=== PATIENT | male | born 1945 ===

== ENCOUNTER 2023-12-16 12:00 | Inpatient (IN) | payer OTHER ==
[~2023-12-16] VITALS: Ht 177.8 cm; Wt 703.1 kg
[2023-12-16 13:18] VITALS: BP 125/68
[2023-12-20] MEDS ORDERED: CEFTRIAXONE SODIUM 2,000 MG VIAL ONE (11:33)
[2023-12-20] MEDS ORDERED: METRONIDAZOLE/SODIUM CHLORIDE 500 MG/100 ML PIGGYBACK IV ONE ×2 (11:34→16:58)
[2023-12-20] MEDS ORDERED: BUPIVACAINE HCL/MPF 0.5% 30ML VIAL ONE (14:48)
[2023-12-20] MEDS ORDERED: SUGAMMADEX SODIUM 200 MG/2 ML VIAL IV ONE (16:03)
[2023-12-20] MEDS ORDERED: DEXTROSE 50 % IN WATER 0.5 G/ML DISP.SYRIN IV PRN (16:15)
[2023-12-20] MEDS ORDERED: RINGERS SOLUTION,LACTATED 1,000 ML IV SCH (16:15)
[2023-12-20] MEDS ORDERED: MORPHINE SULFATE 4 MG/ML CARTRIDGE IV PRN (16:15)
[2023-12-20] MEDS ORDERED: ONDANSETRON HCL 2 MG/ML VIAL IV PRN (16:15)
[2023-12-20] MEDS ORDERED: OxyCODONE HCL 5 MG TABLET (ROXICODONE) PO PRN (16:15)
[2023-12-20] MEDS ORDERED: GABAPENTIN300 M2 (16:18)
[2023-12-20] MEDS ORDERED: FAMOTIDINE20 MG (16:18)
[2023-12-20] MEDS ORDERED: METRONIDAZOLE/SODIUM CHLORIDE 500 MG/100 ML PIGGYBACK IV SCH (17:00)
[2023-12-20] MEDS ORDERED: GABAPENTIN 300 MG CAPSULE PO SCH (17:00)
[2023-12-20] MEDS ORDERED: HYOSCYAMINE SULFATE 0.125 MG TAB.SUBL SL SCH (17:00)
[2023-12-20] MEDS ORDERED: POLYETHYLENE GLYCOL 3350 17 GM BLIST.PACK PO SCH (17:00)
[2023-12-20 17:43] LABS: HEMATOCRIT 32.3 % (39.0-48.0); HEMOGLOBIN 10.6 g/dL (13-16.00); MEAN CELL VOLUME 85.8 fL (80.0-100.00); MEAN CORPUSCULAR HEMOGLOBIN 28.1 pg (27.00-32.0); MEAN CORPUSCULAR HGB CONC 32.8 g/dl (32.0-36.0); PLATELET COUNT 403 K/uL (150-450); RED BLOOD COUNT 3.77 M/uL (4.00-6.00); RED CELL DISTRIBUTION WIDTH 18.2 % (11.5-14.5)
[2023-12-20 18:01] VITALS: BP 125/68; O2SAT 98
[2023-12-20 18:17] LABS: ALBUMIN 2.5 gm/dL (3.4-5.0); CALCIUM 8.7 mg/dL (8.5-10.1); CREATININE SERUM 0.96 mg/dL (0.70-1.30); GFR 75.75; MAGNESIUM 2.2 mg/dL (1.8-2.4); PHOSPHOROUS 4.1 mg/dL (2.5-4.9); POTASSIUM 4.58 mEq/L (3.5-5.1)
[2023-12-20] MEDS ORDERED: ACETAMINOPHEN 500 MG GEL..CAP PO SCH (20:00)
[2023-12-20] MEDS ORDERED: FAMOTIDINE/PF 20 MG/2 ML VIAL IV PUSH SCH (21:00)
[2023-12-20] MEDS ORDERED: CELECOXIB 200 MG CAPSULE PO SCH (21:00)
[2023-12-20] MEDS ORDERED: CIPROFLOXACIN IN 5 % DEXTROSE 400 MG/200 ML PIGGYBAG IV SCH (21:00)
[2023-12-21] VITALS: BP 138/63; O2SAT 98
[2023-12-21 07:52] LABS: HEMATOCRIT 29.1 % (39.0-48.0); HEMOGLOBIN 9.8 g/dL (13-16.00); MEAN CELL VOLUME 84.2 fL (80.0-100.00); MEAN CORPUSCULAR HEMOGLOBIN 28.5 pg (27.00-32.0); MEAN CORPUSCULAR HGB CONC 33.8 g/dl (32.0-36.0); PLATELET COUNT 360 K/uL (150-450); RED BLOOD COUNT 3.45 M/uL (4.00-6.00); RED CELL DISTRIBUTION WIDTH 18.5 % (11.5-14.5)
[2023-12-21] MEDS ORDERED: LACTULOSE 20 G/30 ML BLIST.PACK PO SCH (09:00)
[2023-12-21] MEDS ORDERED: LACTOBACILLUS ACIDOPHILUS 1 CAP CAP PO SCH (09:00)
[2023-12-21 09:03] LABS: ALBUMIN 2.1 gm/dL (3.4-5.0); CALCIUM 8.3 mg/dL (8.5-10.1); CREATININE SERUM 0.78 mg/dL (0.70-1.30); GFR 96.26; PHOSPHOROUS 2.7 mg/dL (2.5-4.9); POTASSIUM 4.86 mEq/L (3.5-5.1)
[2023-12-21 09:35] VITALS: BP 120/57; O2SAT 99
[2023-12-21] MEDS ORDERED: SOD FERRIC GLUC COMPLX/SUCROSE 62.5 MG in 0.9 % SODIUM CHLORIDE 50 ML IV SCH (12:00)
[2023-12-21] MEDS ORDERED: Cyanocobalamin/Mecobalamin 1 TAB.SL SL SCH (12:00)
[2023-12-21] MEDS ORDERED: ENOXAPARIN SODIUM 40 MG/0.4 ML SYRINGE SUBCUTANEO SCH (17:00)
[2023-12-21 17:07] VITALS: BP 150/76; O2SAT 99
[2023-12-22 00:53] VITALS: BP 160/76; O2SAT 97
[2023-12-22 07:20] LABS: CALCIUM 8.3 mg/dL (8.5-10.1); CREATININE SERUM 0.81 mg/dL (0.70-1.30); GFR 92.16; PHOSPHOROUS 2.7 mg/dL (2.5-4.9); POTASSIUM 4.72 mEq/L (3.5-5.1)
[2023-12-22 07:50] LABS: HEMATOCRIT 29.3 % (39.0-48.0); HEMOGLOBIN 9.9 g/dL (13-16.00); MEAN CELL VOLUME 85.7 fL (80.0-100.00); MEAN CORPUSCULAR HGB CONC 33.8 g/dl (32.0-36.0); PLATELET COUNT 352 K/uL (150-450); RED BLOOD COUNT 3.41 M/uL (4.00-6.00); RED CELL DISTRIBUTION WIDTH 18.3 % (11.5-14.5)
[2023-12-22 08:00] VITALS: BP 131/69; O2SAT 97
[2023-12-22] MEDS ORDERED: ENOXAPARIN SODIUM 40 MG/0.4 ML SYRINGE SUBCUTANEO SCH (09:00)
[2023-12-22 16:04] VITALS: BP 149/62; O2SAT 96
[2023-12-23] VITALS: BP 141/61; O2SAT 97
[2023-12-23 07:48] VITALS: BP 134/66; O2SAT 98
[2023-12-23 16:22] VITALS: BP 134/73; O2SAT 99
[2023-12-24 00:25] VITALS: BP 146/67; O2SAT 96
[2023-12-24] MEDS ORDERED: NEURONTIN300 MG PO (09:46)
[2023-12-24 10:19] VITALS: BP 145/71; O2SAT 98
== END 2023-12-24 13:15 | disposition home or self-care (01) | DRG 330 ==
LOC: SURH 12-20 07:00 → O/R 12-20 09:50 → SURH 12-20 12:00
PROVIDERS: Internal Medicine Geriatric Medicine; ADMIT Surgery; ATTEND Surgery
PROC: 0D1N4Z4 Bypass Sigmoid Colon to Cutaneous, Percutaneous Endoscopic Approach (ICD-10-PCS; principal; 2023-12-20 07:00)
DX: C20 Malignant neoplasm of rectum (principal); C78.7 Secondary malignant neoplasm of liver and intrahepatic bile duct; K62.5 Hemorrhage of anus and rectum; R59.0 Localized enlarged lymph nodes; K59.09 Other constipation; K40.90 Unilateral inguinal hernia, without obstruction or gangrene, not specified as recurrent; D64.89 Other specified anemias; Z43.3 Encounter for attention to colostomy
CPT/HCPCS: 240

== ENCOUNTER → 2024-03-30 | Emergency (ER) | payer OTHER ==
[~2024-03-30] VITALS: Ht 175.3 cm; Wt 72.6 kg
[~2024-03-30] MED LIST: ATROPINE SULFATE 0.4 MG/ML VIAL ONE; DOPamine 800 MG/250 ML D5W PB IV ONE; FAMOTIDINE20 MG; GABAPENTIN300 M2; NEURONTIN300 MG PO
[2024-03-30 01:29] LABS: HEMATOCRIT 25.4 % (39.0-48.0); MEAN CELL VOLUME 94.4 fL (80.0-100.00); RED BLOOD COUNT 2.69 M/uL (4.00-6.00); RED CELL DISTRIBUTION WIDTH 20.9 % (11.5-14.5)
[2024-03-30 01:59] LABS: MEAN CORPUSCULAR HEMOGLOBIN 30.1 pg (27.00-32.0)
[2024-03-30 02:00] LABS: PLATELET COUNT 237 K/uL (150-450)
[2024-03-30 02:02] LABS: HEMOGLOBIN 8.1 g/dL (13-16.00)
[2024-03-30 02:10] LABS: CALCIUM 7.6 mg/dL (8.5-10.1); CHLORIDE 108 mmol/L (98-107); GLUCOSE FASTING 86 mg/dL (65-100); SODIUM 139 mmol/L (136-145)
[2024-03-30 02:11] LABS: ANION GAP 29 (10.0-20.0); BUN CREA RATIO 20 (7.0-25.0); OSMOLALITY SERUM 306 MOSM/KG (275-295)
[2024-03-30 02:13] LABS: CARBON DIOXIDE 8 mEq/L (21-32); CREATININE SERUM 4.73 mg/dL (0.70-1.30); POTASSIUM 6.31 mEq/L (3.5-5.1)
[2024-03-30 02:14] LABS: BILIRUBIN TOTAL 23.06 mg/dL (0.3-1.2)
[2024-03-30 02:15] LABS: BLOOD UREA NITROGEN 95 mg/dL (7-18); GFR 12.03
[2024-03-30 02:33] LABS: PH,URINE 7.5 (5.0-8.0); URINE APPEARANCE Turbid; URINE BILIRRUBIN Large (NEGATIVE); URINE COLOR Dark Yellow; URINE GLUCOSE Negative (NEGATIVE); URINE KETONE Negative (NEGATIVE); URINE LEUKOCYTE Large; URINE NITRATE Negative
[2024-03-30 02:36] LABS: URINE CAST 12.22 uL (0.0-1.40); URINE EPITHELIAL CELLS 8.2 uL (0.0-38.8); URINE RBC 88.6 uL (0.0-20.8); URINE WBC 663.5 uL (0.0-23.2)
[2024-03-30 03:46] LABS: URINE BACTERIA > 9821.5 uL (0.0-1933); URINE CRYSTALS MODERATE /HPF; URINE PROTEIN 100 (NEGATIVE)
[2024-03-30 03:49] LABS: URINE BLOOD TRACES
[2024-03-30 03:53] LABS: MEAN CELL VOLUME 93.3 fL (80.0-100.00); MEAN CORPUSCULAR HGB CONC 32.1 g/dl (32.0-36.0); PLATELET COUNT 239 K/uL (150-450); RED CELL DISTRIBUTION WIDTH 20.3 % (11.5-14.5)
[2024-03-30 04:09] LABS: INR 2.6; PROTHROMBIN TIME 26.4 SECONDS (9.0-11.5)
[2024-03-30 04:10] LABS: HEMATOCRIT 23.3 % (39.0-48.0)
[2024-03-30 04:11] LABS: HEMOGLOBIN 7.5 g/dL (13-16.00)
[2024-03-30 04:14] LABS: ALBUMIN 1.3 gm/dL (3.4-5.0); CALCIUM 7.7 mg/dL (8.5-10.1); GLOBULINA 3.8 G/DL (2.4-3.5); TOTAL PROTEIN 5.1 gm/dL (6.4-8.2)
[2024-03-30 04:17] LABS: POTASSIUM 6.84 mEq/L (3.5-5.1)
[2024-03-30 04:18] LABS: BILIRUBIN TOTAL 21.97 mg/dL (0.3-1.2)
[2024-03-30 04:21] LABS: GFR 11.28
[2024-03-30 04:23] LABS: PARTIAL THROMBOPLASTIN TIME 50.7 SECONDS (22.0-34.0)
[2024-03-30 04:38] LABS: ALBUMIN 1.3 gm/dL (3.4-5.0); TOTAL PROTEIN 5.2 gm/dL (6.4-8.2)
[2024-03-30 04:40] LABS: BILIRUBIN,UNCONJUGATED 2.88 mg/dL (0.0-0.6)
[2024-03-30 04:41] LABS: BILIRUBIN TOTAL 21.81 mg/dL (0.3-1.2); BILIRUBIN,CONJUGATED 18.93 mg/dL (0.0-0.2)
[2024-03-30 06:39] LABS: ABG PH 7.332 (7.35-7.45); ABG PO2 227.9 mmHg (80-100); ABG pCO2 17.5 mmHg (35-45); BICARBONATE 9.1 mmol/l (23-25); SaO2 99.7 %; Tco2 9.6 mmol/l; allen test SATISFACTORY; o2 100 %; puncture site RADIAL LEFT
== END | disposition home or self-care (01) ==
LOC: ER 00:20
PROVIDERS: General Practice
DX: C80.1 Malignant (primary) neoplasm, unspecified (principal); C22.9 Malignant neoplasm of liver, not specified as primary or secondary; R06.02 Shortness of breath; Z88.6 Allergy status to analgesic agent
CPT/HCPCS: 36415; 71045; 82803; 96365; 99283; J3490